=== PATIENT | female | born 1980 | race Caucasian/White ===

== ENCOUNTER 2024-02-04 08:58 | Day surgery (SDC) | payer OTHER ==
[2024-02-04 09:25] VITALS: BMI 27.9
[2024-02-04] MEDS ORDERED: ROPIVACAINE HCL/PF 100 MG/20 ML VIAL ONE (09:25)
[2024-02-04] MEDS ORDERED: DEXAMETHASONE SOD PHOSPHATE 10 MG/1 ML VIAL ONE (09:25)
[2024-02-04] MEDS ORDERED: DEXAMETHASONE SOD PHOSPHATE 4 MG/1 ML VIAL ONE (10:18)
[2024-02-04] MEDS ORDERED: VANCOMYCIN 1,000 MG VIAL (RESTRICTED TO ID ONLY) ONE (10:18)
[2024-02-04] MEDS ORDERED: ONDANSETRON 4 MG/2 ML VIAL ONE ×2 (10:18→12:27)
[2024-02-04] MEDS ORDERED: ceFAZolin SODIUM 1 GM VIAL ONE (10:18)
[2024-02-04] MEDS ORDERED: METOCLOPRAMIDE HCL INJECTION 10 MG/2 ML VIAL ONE (10:18)
[2024-02-04] MEDS ORDERED: PHENYLEPHRINE HCL 10 MG/1 ML SINGLE DOSE VIAL ONE (10:49)
[2024-02-04] MEDS ORDERED: LACTATED RINGERS SOLUTION 1,000 ML IV SCH (11:00)
[2024-02-04] MEDS ORDERED: PROPOFOL 20 ML ONE (11:14)
[2024-02-04] MEDS ORDERED: ACETAMINOPHEN INJECTION 100 ML ONE (11:44)
[2024-02-04] MEDS ORDERED: FENTANYL CITRATE/PF 50 MCG/ML VIAL ONE ×2 (11:54→12:24)
[2024-02-04] MEDS ORDERED: oxyCODONE HCL 5 MG TABLET ONE (12:19)
[2024-02-04] MEDS: oxyCODONE HCL 5 MG TABLET PO PRN (12:20)
[2024-02-04] MEDS: ONDANSETRON 4 MG/2 ML VIAL IVPUSH PRN (12:36)
[2024-02-04 13:01] VITALS: RESP 18
[2024-02-04 13:03] VITALS: PULSE 84; TEMP 97.2
[2024-02-04 14:12] VITALS: BP 110/68
== END 2024-02-04 14:07 | disposition home or self-care (01) ==
LOC: FASU 08:58
PROVIDERS: ATTEND Orthopaedic Surgery Sports Medicine
PROC: 0QP104Z Removal of Internal Fixation Device from Sacrum, Open Approach (ICD-10-PCS; principal; 2024-02-04 10:41)
DX: T84.84XA Pain due to internal orthopedic prosthetic devices, implants and grafts, initial encounter (principal); Y79.1 Therapeutic (nonsurgical) and rehabilitative orthopedic devices associated with adverse incidents; Y92.9 Unspecified place or not applicable
CPT/HCPCS: 73560-TC-RT-FY; 81025; 88300-TC; 94760; J0131; J1100